=== PATIENT | female | born 1955 | race Caucasian/White ===

== ENCOUNTER 2016-04-07 20:44 | Inpatient (IN) | payer MEDICARE, MEDICAID ==
--- NOTE | 2016-04-07 22:34 | ER Document Report ---
ED Medical Screen (RME) - General Stated Complaint: ABDOMINAL PAIN Time seen by provider: 22:30 Notes: 60 year old female, chief complaint of mid abdominal pain for 1 month, worsening mid abdominal pain, reports that she has a failed hernia repair which she was told needed to be evaluated but she became sick and could not get to be evaluated until now. She states she can feel the hernia but she cannot push it back in. She states she has vomited, had loose bowel movement. Denies fever. - Related Data Allergies/Adverse Reactions: acetaminophen [From Tylenol] Allergy (Verified 11/08/11 16:13) nalbuphine HCl [From Nubain] Allergy (Verified 11/08/11 16:13) Past Medical History Psychiatric Medical History: Reports: Hx Depression Past Surgical History: Reports: Hx Abdominal Surgery - gastric bypass, Hx Hysterectomy Physical Exam - Abdominal Tenderness: Other - Patient with a ventral hernia scar, midline significant tenderness, obvious ventral hernia which I cannot reduce easily in the chair with limited abdominal exam Course - Re-evaluation Re-evalutation: Patient is not in any distress suggesting a severely incarcerated hernia, however in the chair I cannot reduce the obvious ventral hernia and the area is very tender - asking for a room
[2016-04-08] MEDS ORDERED: FENTANYL CITRATE INJ/PF 100 MCG/2 ML AMPUL IV ONE (01:47)
[2016-04-08] MEDS ORDERED: NORMAL SALINE 1000 ML 1,000 ML IV ONE (01:47)
[2016-04-08 02:17] LABS: ABSOLUTE EOSINOPHILS # (AUTO) 0.2 10^3/uL (0.0-0.6); ABSOLUTE LYMPHOCYTES (AUTO) 1.3 10^3/uL (0.5-4.7); ABSOLUTE MONOCYTES (AUTO) 0.5 10^3/uL (0.1-1.4); ABSOLUTE NEUT (AUTO) 1.4 10^3/uL (1.7-8.2); BASOPHILS % (AUTO) 0.4 % (0-2); EOSINOPHILS % (AUTO) 7.1 % (0-6); HEMATOCRIT 41.5 % (36.0-47.0); HEMOGLOBIN 14.6 g/dL (12.0-15.5); HGB HCT DIFFERENCE 2.3; LYMPHOCYTES % (AUTO) 37.8 % (13-45); MEAN CORPUSCULAR HEMOGLOBIN 34.9 pg (27.0-33.4); MEAN CORPUSCULAR HGB CONC 35.2 g/dL (32.0-36.0); MEAN CORPUSCULAR VOLUME 99 fl (80-97); RED BLOOD COUNT 4.18 10^6/uL (3.72-5.28); RED CELL DISTRIBUTION WIDTH 12.9 % (11.5-14.0); SEGMENTED NEUTROPHILS % (AUTO) 39.7 % (42-78); WHITE BLOOD COUNT 3.4 10^3/uL (4.0-10.5)
[2016-04-08 02:33] LABS: ALANINE AMINOTRANSFERASE 22 U/L (9-52); ALBUMIN 4.2 g/dL (3.5-5.0); ALKALINE PHOSPHATASE 106 U/L (38-126); ANION GAP 13 (5-19); ASPARTATE AMINO TRANSFERASE 35 U/L (14-36); BILIRUBIN,TOTAL 0.4 mg/dL (0.2-1.3); BLOOD UREA NITROGEN 9 mg/dL (7-20); CARBON DIOXIDE 27 mmol/L (22-30); CHLORIDE 102 mmol/L (98-107); GLUCOSE 88 mg/dL (75-110); LIPASE 114.8 U/L (23-300); POTASSIUM 4.2 mmol/L (3.6-5.0); SODIUM 142.1 mmol/L (137-145); TOTAL PROTEIN 7.3 g/dL (6.3-8.2)
--- NOTE | 2016-04-08 02:44 | ER Document Report ---
ED GI/ - General Chief Complaint: Abdominal Pain Stated Complaint: ABDOMINAL PAIN Notes: Patient is a 60 year old female, chief complaint of mid abdominal pain for 1 month, worsening mid abdominal pain, reports that she has a failed hernia repair which she was told needed to be evaluated but she became sick and could not get to be evaluated until now. She states she can feel the hernia but she cannot push it back in. She states she has vomited, had loose bowel movement. Denies fever. Past medical history of hypertension, initial hernia repair in 2002 and then again in 2004 in [place], hysterectomy, gastric bypass, bladder lift 2 TRAVEL OUTSIDE OF THE [place] IN LAST 30 DAYS: No - Related Data Allergies/Adverse Reactions: acetaminophen [From Tylenol] Allergy (Verified 04/08/16 05:45) nalbuphine HCl [From Nubain] Allergy (Verified 04/08/16 05:45) meperidine [From Demerol] Adverse Reaction (Intermediate, Verified 04/08/16 05: 45) Migraine Home Medications: Current Home Medications Atenolol [Atenolol] 1 tab PO DAILY 04/08/16 [History] Past Medical History - General Information source: Patient - Social History Smoking Status: Current Every Day Smoker Chew tobacco use (# tins/day): No Frequency of alcohol use: Heavy Drug Abuse: None Lives with: Family Family History: Reviewed & Not Pertinent Patient has suicidal ideation: No Patient has homicidal ideation: No - Past Medical History Cardiac Medical History: Reports: Hx Hypertension Renal/ Medical History: Denies: Hx Peritoneal Dialysis Psychiatric Medical History: Reports: Hx Depression Past Surgical History: Reports: Hx Abdominal Surgery - gastric bypass, hernia, Hx Genitourinary Surgery - bladder surgery x2, Hx Hysterectomy - Immunizations Hx Diphtheria, Pertussis, Tetanus Vaccination: - unk Review of Systems - Review of Systems Constitutional: No symptoms reported EENT: No symptoms reported Cardiovascular: No symptoms reported Respiratory: No symptoms reported Gastrointestinal: See HPI Genitourinary: No symptoms reported Female Genitourinary: No symptoms reported Musculoskeletal: No symptoms reported Skin: No symptoms reported Hematologic/Lymphatic: No symptoms reported Neurological/Psychological: No symptoms reported Physical Exam - Vital signs Vitals: Temp Pulse BP Pulse Ox 97.5 F 92 124/70 98 04/07/16 22:19 04/07/16 22:19 04/07/16 22:19 04/07/16 22:19 Interpretation: Normal - General General appearance: Alert In distress: None - Patient does not appear to be in any distress - HEENT Head: Normocephalic, Atraumatic Eyes: Normal Conjunctiva: Normal Extraocular movements intact: Yes Eyelashes: Normal Pupils: PERRL Mouth/Lips: Normal Mucous membranes: Normal Pharynx: Normal Neck: Normal - Respiratory Respiratory status: No respiratory distress Chest status: Nontender Breath sounds: Normal. No: Decreased air movement, Wheezing Chest palpation: Normal - Cardiovascular Rhythm: Regular. No: Tachycardia Heart sounds: Normal auscultation, S1 appreciated, S2 appreciated Murmur: No - Abdominal Inspection: Other - There is a large midline scar extending from the upper abdomen to the lower abdomen Tenderness: Tender - There is a tender ventral hernia noted on examination, no other areas of tenderness of the abdomen, no rigidity - Back Back: Normal, Nontender. No: Tender - Extremities General upper extremity: Normal inspection, Nontender, Normal color, Normal ROM , Normal temperature General lower extremity: Normal inspection, Nontender, Normal color, Normal ROM , Normal temperature, Normal weight bearing. No: Seth's sign - Neurological Neuro grossly intact: Yes Cognition: Normal Orientation: AAOx4 [place] Coma Scale Eye Opening: Spontaneous [place] Coma Scale Verbal: Oriented [place] Coma Scale Motor: Obeys Commands [place] Coma Scale Total: 15 Speech: Normal Cranial nerves: Normal Cerebellar coordination: Normal Motor strength normal: LUE, RUE, LLE, RLE Additional motor exam normals: Equal auditor Sensory: Normal - Psychological Associated symptoms: Normal affect, Normal mood - Skin Skin Temperature: Warm Skin Moisture: Dry Skin Color: Normal Course - Re-evaluation Re-evalutation: CBC unremarkable, vital signs unremarkable, however patient has a ventral hernia which is notably tender on examination, protruding obviously, I was able to reduce this after giving the patient fentanyl, however promptly after this the hernia came back with outpatient coughing or even getting up. Attempted to reduce again with no success. 04/08/16 03:00 Discussed with surgery quality consultant, Dr. Zuluaga, he requests orders to be place for fluids, nothing by mouth status, and when necessary pain medication, observation admission, states he will see patient. - Vital Signs Vital signs: Temp Pulse Resp BP Pulse Ox 98.3 F 84 18 114/70 97 04/08/16 04:00 04/08/16 01:45 04/08/16 04:00 04/08/16 05:01 04/08/16 05:09 - Laboratory Result Diagrams: 04/08/16 01:50 04/08/16 01:50 Laboratory results interpreted by me: 04/08/16 01:50 WBC 3.4 L MCV 99 H MCH 34.9 H Seg Neutrophils % 39.7 L Monocytes % 15.0 H Eosinophils % 7.1 H Absolute Neutrophils 1.4 L Discharge - Discharge Clinical Impression: Incarcerated ventral hernia Abdominal pain Qualifiers: Abdominal location: generalized Qualified Code(s): R10.84 - Generalized abdominal pain Disposition: ADMITTED OBSERVATION Admitting Provider: Surgicalist Unit Admitted: Surgical Floor
[2016-04-08] MEDS ORDERED: DEXTROSE 5%-1/2 NORMAL SALINE 1,000 ML IV PRN (02:52)
[2016-04-08] MEDS: MORPHINE SULFATE 10 MG/ML INJ IV PRN ×4 (05:28→17:23)
[2016-04-08 06:01] LABS: APPEARANCE,URINE CLEAR; BILIRUBIN,URINE NEGATIVE (NEGATIVE); GLUCOSE, URINE NEGATIVE (NEGATIVE); KETONES,URINE NEGATIVE (NEGATIVE); LEUKOCYTE ESTERASE,URINE NEGATIVE (NEGATIVE); NITRITE,URINE NEGATIVE (NEGATIVE); PROTEIN,URINE NEGATIVE (NEGATIVE); URINE SPECIFIC GRAVITY 1.004; UROBILINOGEN,URINE NEGATIVE mg/dL (<2.0)
[2016-04-08] MEDS ORDERED: LIDOCAINE 2% INJ-PF (20 MG/ML) 10 ML AMPUL ONE (07:36)
[2016-04-08] MEDS ORDERED: NEOSTIGMINE METHYLSULFATE 10 MG/10 ML VIAL ONE (07:36)
[2016-04-08] MEDS ORDERED: SUCCINYLCHOLINE CHLORIDE INJ 200 MG/10 ML VIAL ONE (07:36)
[2016-04-08] MEDS ORDERED: ONDANSETRON HCL INJ/PF 4 MG/2 ML SDV ONE (07:36)
[2016-04-08] MEDS ORDERED: GLYCOPYRROLATE INJ 0.4 MG/2 ML VIAL ONE (07:36)
[2016-04-08] MEDS ORDERED: DEXAMETHASONE SOD PHOSPHATE INJ 4 MG/1 ML VIAL ONE (07:36)
[2016-04-08] MEDS ORDERED: VECURONIUM BROMIDE INJ 10 MG VIAL IV ONE (07:36)
[2016-04-08] MEDS ORDERED: FENTANYL CITRATE INJ/PF 100 MCG/2 ML AMPUL ONE (19:13)
[2016-04-08] MEDS ORDERED: PROPOFOL INJ 200 MG/20 ML VIAL IV ONE (19:13)
[2016-04-08] MEDS ORDERED: MIDAZOLAM 2 MG/2 ML INJ ONE (19:13)
[2016-04-08] MEDS ORDERED: HYDROMORPHONE HCL INJ/PF 2 MG/ML AMPULE ONE (19:18)
[2016-04-08] MEDS ORDERED: MORPHINE SULFATE 10 MG/ML INJ IV PRN ×3 (19:26→21:15)
[2016-04-08] MEDS ORDERED: BUPIVACAINE HCL 0.25% /EPINEPHRINE INJ/PF 30 ML SDV ONE (19:52)
[2016-04-08] MEDS ORDERED: ERTAPENEM SODIUM 1 GM in NORMAL SALINE 50 ML IV ONE (20:00)
--- NOTE | 2016-04-08 20:03 | CONSULT/HISTORY AND PHYSICAL E ---
Consultation/History and Physical PATIENT NAME: IQRA SCHULTZ : 1955 AGE: 60Y DATE: 04/08/2016 ROOM: 204 CHIEF COMPLAINT: Abdominal pain. HISTORY OF PRESENT ILLNESS: The patient is a 60-year-old woman who presents with excruciating pain in the mid abdomen. In the Emergency Department, attempts were made to reduce what appeared to be a ventral hernia; however, these attempts were unsuccessful, and the patient is admitted for further surgical treatment of incarcerated recurrent ventral hernia. She has not had nausea or vomiting, but she has had pain over the last few days especially when standing or lifting. She points to a knot in her mid abdomen. PAST MEDICAL HISTORY: Her past medical history is remarkable for gastric bypass procedure. She has also had multiple abdominal hernia wall repairs and repair of inguinal hernia and hysterectomy and bladder packing. Patient denies history of cardiac, pulmonary, or endocrinologic disease. ALLERGIES: Allergies not to: 1. ACETAMINOPHEN. 2. NUBAIN. 3. MEPERIDINE. FAMILY HISTORY: Non-contributory. SOCIAL HISTORY: The patient is a current smoker. She uses alcohol heavily by her report. She lives with her family, and they are [employer] and [employer]. REVIEW OF SYSTEMS: Review of systems is discussed. There are no constitutional, HEENT, cardiovascular, respiratory, genitourinary symptoms. Gastrointestinal symptoms as noted in the HPI. She has no musculoskeletal complaints. She does complain of varicose veins in her right lower extremity, but she denies discomfort in the lower extremities. PHYSICAL EXAMINATION: GENERAL: The patient is a pleasant woman in no acute distress. She is uncomfortable and has had pain relieved by morphine. HEAD AND NECK: Unremarkable for age. CHEST: Clear to auscultation and percussion. CARDIAC: Without murmur, gallop, or rub. ABDOMEN: Soft. There is a palpable mass in the mid abdomen which is tender, but there is no erythema, induration, or evidence of bowel incarcerated without evidence of abdominal distention or tympani or organomegaly, mass, rebound, guarding, or rigidity. Again, no evidence of peritonitis. Peripheral examination otherwise unremarkable. DIAGNOSTIC TESTS: Data base includes a CT scan which reveals a 10 mm nodule of fat incarcerated in the abdominal ventral hernia that is consistent with findings on the physical examination. She has a white count of 3400; hemoglobin and hematocrit are 14.6 and 41.5. Sodium 142, potassium 4.2, chloride 102, CO2 27. BUN and creatinine are 9 and 0.6. Liver function and lipase are within normal range. IMPRESSION: A 60-year-old woman with an incarcerated recurrent ventral hernia. The risks and alternatives of repair were discussed at length. The patient is markedly uncomfortable and has had increasing discomfort over the last few days. She is aware that she has had multiple hernia repairs and that in all likelihood there is scarring in the area of this hernia. I impressed upon her that I will do my best to simply repair this small hernia and remove the incarcerated fat, but she is also aware of the risks for injury to bowel in the vicinity secondary to multiple probable adhesions. She wishes to proceed at this time. She will receive IV antibiotic therapy preoperatively. She has signed the consent regarding risks and alternatives and again wishes to proceed. DICTATING PHYSICIAN: ANGELICA PERDOMO M.D. [id number] PHY#: [id number] ID: [id number] JOB#: [id number] ACCT: [id number] cc:Katia PERERA PA >
[2016-04-08] MEDS ORDERED: BUPIVACAINE HCL 0.25% /EPINEPHRINE INJ/PF 30 ML SDV INJ ONE (20:07)
[2016-04-08] MEDS ORDERED: PROMETHAZINE HCL INJ 25 MG/1 ML VIAL IV PRN ×2 (20:10)
[2016-04-08] MEDS ORDERED: FENTANYL CITRATE INJ/PF 100 MCG/2 ML AMPUL IV PRN ×3 (20:10)
[2016-04-08] MEDS ORDERED: DIPHENHYDRAMINE HCL 50 MG/ML VIAL IV PRN (20:10)
[2016-04-08] MEDS ORDERED: OXYCODONE HCL IR 5 MG TABLET PO PRN (21:15)
--- NOTE | 2016-04-08 21:18 | OPERATIVE REPORT E ---
Operative Report NAME: IQRA SCHULTZ : 1955 AGE: 60Y DATE OF SURGERY: 04/08/2016 ROOM: 204 PREOPERATIVE DIAGNOSIS: Incarcerated recurrent ventral hernia. POSTOPERATIVE DIAGNOSIS: Incarcerated recurrent ventral hernia. OPERATION: Repair of incarcerated ventral abdominal wall hernia. SURGEON: PAYTON PERDOMO M.D. ANESTHESIA: General endotracheal. PROCEDURE: The patient was taken to the operating room after informed consent, positive identification, and timeout. The abdomen was prepped and draped in a standard fashion. An incision was made 3 cm above and 3 cm below the palpable mass in the supraumbilical region. The incision was made with the scalpel, carried down to the deep tissues with the Metzenbaum scissors and Bovie cautery. A firm rounded 2 cm mass was located. This was dissected free and did not communicate with the peritoneal cavity but appeared to be calcified fatty tissue. Just above this was a 1 cm ventral hernia through which was incarcerated properitoneal fat. There was no bowel involved on the CT scan of this area. The properitoneal fat was carefully dissected free, and a small hernia sac was opened and inspected, and once it was assured that there were no bowel contents within this protruding hernia, the tissue was divided *------* between #0-Vicryl sutures and passed off the surgical field. This left a 1.5 to 2 cm defect with free edges, and this was easily re-approximated with several #0-Vicryl interrupted sutures. With this accomplished, the fascial area was injected with 0.25% Marcaine with epinephrine solution, and the deep tissues were re-approximated with an #0-Vicryl interrupted suture. The skin was closed with patt. The patient tolerated the procedure well. Estimated blood loss was less than 10 mL. Sponge and needle counts were correct, and the patient was taken to the recovery room in satisfactory condition. DICTATING PHYSICIAN: ANGELICA PERDOMO M.D. [id number] PHY#: [id number] ID: [id number] JOB#: [id number] ACCT: [id number] cc:PAYTON PERDOMO M.D. >
[2016-04-08] MEDS: POTASSI CL 20 MEQ/D5-1/2NS 1L 1000 ML IV PRN (21:56)
[2016-04-08] MEDS ORDERED: PANTOPRAZOLE SODIUM 40 MG VIAL IV SCH (22:00)
[2016-04-09] MEDS: POTASSI CL 20 MEQ/D5-1/2NS 1L 1000 ML IV PRN (06:22)
[2016-04-09] MEDS ORDERED: ATENOLOL 50 MG TABLET PO SCH (10:00)
--- NOTE | 2016-04-09 13:38 | DISCHARGE SUMMARY E ---
Discharge Summary NAME: IQRA SCHULTZ : 1955 AGE: 60Y ADMITTED: 04/08/2016 DISCHARGED: 04/09/2016 ADMITTING DIAGNOSIS: Incarcerated ventral recurrent hernia. POSTOPERATIVE DIAGNOSIS: Status post operative repair of incarcerated recurrent ventral hernia. HOSPITAL COURSE: Unremarkable. She was admitted after surgical intervention late in the evening on 04/08 and was able to be discharged on the first postoperative morning. Active and ambulatory. Tolerating a regular diet and without complaint. She is provided a prescription for oxycodone. She has allergies to ACETAMINOPHEN. She is advised not to drive while taking oxycodone. Her wounds are clean. Her abdomen is soft. She is advised not to lift. She is to be seen in followup in [address] Maravilla. She is to remain active, ambulatory, and contact Dr. Perdomo should she have any questions or problems. She is to continue her prehospital medication of atenolol for which she has ample quantity at home. DICTATING PHYSICIAN: ANGELICA PERDOMO M.D. [id number] PHY#: [id number] ID: [id number] JOB#: [id number] ACCT: [id number] cc:PAYTON PERDOMO M.D., IVAN PA [facility] NETWORK[facility]
[2016-04-09 14:14] VITALS: BP 128/76
== END 2016-04-09 15:15 | disposition home or self-care (01) | DRG 355 ==
LOC: ER 20:44 → EH 04-08 03:04 → OBSVTOIN 04-08 04:51 → 2N 04-08 16:38
PROVIDERS: ATTEND Surgery
PROC: 0WQF0ZZ Repair Abdominal Wall, Open Approach (ICD-10-PCS; principal; 2016-04-08 20:30)
DX: K43.0 Incisional hernia with obstruction, without gangrene (principal); I10 Essential (primary) hypertension; F17.200 Nicotine dependence, unspecified, uncomplicated; Z98.84 Bariatric surgery status; Z90.710 Acquired absence of both cervix and uterus; Z88.6 Allergy status to analgesic agent; Z88.8 Allergy status to other drugs, medicaments and biological substances; Z72.89 Other problems related to lifestyle
CPT/HCPCS: 36415; 74177; 752; 80053; 81001; 83690; 85025; 88302; 94799; J0330; J1100; J1170; J1335; J2250; J2270; J2405; J2704; J3010; J3480; J3490; J7030; S0164

== ENCOUNTER 2016-09-25 19:29 | Emergency (ER) | payer MEDICARE, MEDICAID ==
[2016-09-25] MEDS ORDERED: POTASSI CL 20 MEQ/50 ML RIDER 20 MEQ/50 ML RTUPB IV SCH (20:12)
[2016-09-25] MEDS ORDERED: CALCIUM GLUCONATE 1000 MG/10 ML INJ IV ONE (20:14)
[2016-09-25] MEDS ORDERED: DILTIAZEM HCL/D5W 125 MG/125 ML RTUINJ IV PRN (20:14)
[2016-09-25] MEDS ORDERED: MAGNESIUM SULFATE/D5W 1 GM/100 ML RTUPB IV SCH (20:15)
--- NOTE | 2016-09-25 20:29 | ER Document Report ---
ED GI/ - General Chief Complaint: Abdominal Pain Stated Complaint: ABDOMINAL PAIN Time Seen by Provider: 09/25/16 19:54 Notes: The patient is a 61-year-old female, past medical history multiple ventral hernia repairs (last one 5 months ago at [facility]), gastric bypass, presents with intermittent right upper quadrant abdominal pain, at the site of her prior ventral hernias. She is unsure if it has returned. She is also having nausea, but denies vomiting, fevers, diarrhea, constipation, headache, urinary symptoms , rash, chest pain or shortness of breath. TRAVEL OUTSIDE OF THE [place] IN LAST 30 DAYS: No - Related Data Allergies/Adverse Reactions: acetaminophen [From Tylenol] Allergy (Verified 04/08/16 05:45) nalbuphine HCl [From Nubain] Allergy (Verified 04/08/16 05:45) oxycodone [From Percocet] Allergy (Verified 09/25/16 19:38) meperidine [From Demerol] Adverse Reaction (Intermediate, Verified 04/08/16 05: 45) Migraine Past Medical History - General Information source: Patient - Social History Smoking Status: Current Every Day Smoker Family History: Reviewed & Not Pertinent - Past Medical History Cardiac Medical History: Reports: Hx Hypertension Renal/ Medical History: Denies: Hx Peritoneal Dialysis Psychiatric Medical History: Reports: Hx Depression Past Surgical History: Reports: Hx Abdominal Surgery - gastric bypass, hernia, Hx Genitourinary Surgery - bladder surgery x2, Hx Hysterectomy - Immunizations Hx Diphtheria, Pertussis, Tetanus Vaccination: - unk Review of Systems - Review of Systems Notes: REVIEW OF SYSTEMS: CONSTITUTIONAL: -fevers, -chills EENT: -eye pain, -difficulty swallowing, -nasal congestion CARDIOVASCULAR:-chest pain, -syncope. RESPIRATORY: -cough, -SOB GASTROINTESTINAL: +abdominal pain, +nausea, -vomiting, -diarrhea GENITOURINARY: -dysuria, -hematuria MUSCULOSKELETAL: -back pain, -neck pain SKIN: -rash or skin lesions. HEMATOLOGIC: -easy bruising or bleeding. LYMPHATIC: -swollen, enlarged glands. NEUROLOGICAL: -altered mental status or loss of consciousness, -headache, - neurologic symptoms PSYCHIATRIC: -anxiety, -depression. ALL OTHER SYSTEMS REVIEWED AND NEGATIVE. Physical Exam - Vital signs Vitals: Temp Pulse Resp BP Pulse Ox 97.6 F 88 17 117/87 H 94 09/25/16 19:38 09/25/16 19:38 09/25/16 19:38 09/25/16 19:38 09/25/16 19:38 - Notes Notes: PHYSICAL EXAMINATION: GENERAL: Well-appearing, well-nourished and in no acute distress. HEAD: Atraumatic, normocephalic. EYES: Pupils equal round and reactive to light, extraocular movements intact, sclera anicteric, conjunctiva are normal. ENT: nares patent, oropharynx clear without exudates. Moist mucous membranes. NECK: Normal range of motion, supple without lymphadenopathy LUNGS: Breath sounds clear to auscultation bilaterally and equal. No wheezes rales or rhonchi. HEART: Regular rate and rhythm without murmurs ABDOMEN: Soft, nontender, normoactive bowel sounds. No guarding, no rebound. No masses appreciated. EXTREMITIES: Normal range of motion, no pitting or edema. No cyanosis. NEUROLOGICAL: Cranial nerves grossly intact. Normal speech, normal gait. Normal sensory and motor exams. PSYCH: Normal mood, normal affect. SKIN: Warm, Dry, normal turgor, no rashes or lesions noted. Course - Re-evaluation Re-evalutation: Patient appears well and has no abdominal pain or tenderness. CT does not show any evidence of recurrence of ventral hernia. Labs are unremarkable. Instructed patient to follow-up with her surgeon for further evaluation and treatment. - Vital Signs Vital signs: Temp Pulse Resp BP Pulse Ox 97.6 F 88 17 117/87 H 94 09/25/16 19:38 09/25/16 19:38 09/25/16 19:38 09/25/16 19:38 09/25/16 19:38 - Laboratory Result Diagrams: 09/25/16 21:03 09/25/16 21:03 Laboratory results interpreted by me: 09/25/16 09/25/16 21:03 21:03 RBC 3.53 L MCV 102 H MCH 35.7 H Sodium 136.2 L - Diagnostic Test Radiology reviewed: Image reviewed, Reports reviewed Radiology results interpreted by me: CT A/P: NAD Discharge - Discharge Clinical Impression: Abdominal pain Qualifiers: Abdominal location: unspecified location Qualified Code(s): R10.9 - Unspecified abdominal pain Condition: Stable Disposition: HOME, SELF-CARE Additional Instructions: Your CAT scan does not show any acute findings today and her labs are unremarkable. Follow-up with your surgeon for further evaluation and treatment. ABDOMINAL PAIN: There are many causes of abdominal pain. Pain can mean a serious problem requiring surgery (such as appendicitis). It can also be an innocent problem that goes away on its own (such as a viral infection). Often, time must pass to determine the cause of pain. The physician does not feel that hospitalization is necessary, at present. Things may change within the next 24 hours. Call the doctor or come back for re- examination if any problems occur, such as: (1) Pain that becomes more severe, steady, or becomes concentrated in one specific area. Also, pain that is more severe with movement or coughing. (2) Vomiting that persists or becomes more frequent. (3) Blood in the vomitus, urine, or bowel movements. Blood in the stool may have a tarry or black appearance. (4) Shaking chills or fever greater than 100 degrees F. (5) The abdomen becomes more distended or swollen. (6) Bowel movements cease. (7) Failure to improve as expected. NORMAL EXAM AND WORKUP: At this time, your examination and workup show no significant abnormality. No significant abnormal physical findings are noted. All laboratory, EKG, and imaging (x-ray, CT scans, ultrasound) studies that were ordered show no significant abnormality. Although your examination and all studies that were ordered showed no significant abnormal finding, there are no examinations and no studies that are 100% accurate. There is always the possibility that some abnormality could exist and not be detected with physical examination or within the limits and capabilities of laboratory and other studies. You should return or follow up as you were instructed on your visit today for further evaluation if your symptoms do not resolve. PAIN MEDICATION INJECTION: You have received an injection of a pain medication. You should experience significant pain relief within 45 minutes. This drug is a narcotic - - it will impair your judgement, slow your reaction time and make you sleepy ( as well as relieve your pain). Narcotics also can cause nausea. You should not drive, work with machinery, or perform any task requiring mental alertness until all effects of the medication are gone -- six to eight hours. Do not take any alcohol, or sedatives, and do not take any other medication without checking with your physician. FOLLOW-UP CARE: If you have been referred to a physician for follow-up care, call the physician s office for an appointment as you were instructed or within the next two days. If you experience worsening or a significant change in your symptoms, notify the physician immediately or return to the Emergency Department at any time for re-evaluation.
[2016-09-25] MEDS ORDERED: KETOROLAC TROMETHAMINE INJ/PF 30 MG/1 ML SDV IV ONE (20:33)
[2016-09-25] MEDS ORDERED: MORPHINE SULFATE 10 MG/ML INJ IV ONE (20:33)
[2016-09-25 21:13] LABS: ABSOLUTE EOSINOPHILS # (AUTO) 0.1 10^3/uL (0.0-0.6); ABSOLUTE LYMPHOCYTES (AUTO) 1.9 10^3/uL (0.5-4.7); ABSOLUTE MONOCYTES (AUTO) 0.6 10^3/uL (0.1-1.4); ABSOLUTE NEUT (AUTO) 2.6 10^3/uL (1.7-8.2); BASOPHILS % (AUTO) 0.6 % (0-2); EOSINOPHILS % (AUTO) 2.7 % (0-6); HEMATOCRIT 36.2 % (36.0-47.0); HEMOGLOBIN 12.6 g/dL (12.0-15.5); HGB HCT DIFFERENCE 1.6; LYMPHOCYTES % (AUTO) 36.5 % (13-45); MEAN CORPUSCULAR HEMOGLOBIN 35.7 pg (27.0-33.4); MEAN CORPUSCULAR HGB CONC 34.9 g/dL (32.0-36.0); MEAN CORPUSCULAR VOLUME 102 fl (80-97); MONOCYTES % (AUTO) 11.2 % (3-13); RED BLOOD COUNT 3.53 10^6/uL (3.72-5.28); RED CELL DISTRIBUTION WIDTH 12.7 % (11.5-14.0); WHITE BLOOD COUNT 5.3 10^3/uL (4.0-10.5)
[2016-09-25 21:30] LABS: ALANINE AMINOTRANSFERASE 33 U/L (9-52); ALKALINE PHOSPHATASE 90 U/L (38-126); ANION GAP 8 (5-19); ASPARTATE AMINO TRANSFERASE 35 U/L (14-36); BILIRUBIN,DIRECT 0.4 mg/dL (0.0-0.4); BILIRUBIN,TOTAL 0.5 mg/dL (0.2-1.3); BLOOD UREA NITROGEN 10 mg/dL (7-20); CALCIUM 9.3 mg/dL (8.4-10.2); CARBON DIOXIDE 26 mmol/L (22-30); CHLORIDE 102 mmol/L (98-107); GLUCOSE 84 mg/dL (75-110); LIPASE 91.6 U/L (23-300); POTASSIUM 3.9 mmol/L (3.6-5.0); SODIUM 136.2 mmol/L (137-145); TOTAL PROTEIN 6.5 g/dL (6.3-8.2)
--- NOTE | 2016-09-25 22:57 | RADIOLOGY REPORT (SQ) ---
EXAM DESCRIPTION: CT ABD/PELVIS WITH IV ONLY COMPLETED DATE/TIME: 09/25/2016 10:22 pm REASON FOR STUDY: abdominal distention, hernia, vomiting COMPARISON: 04/08/2016 TECHNIQUE: CT scan of the abdomen and pelvis performed using helical scanning technique with dynamic intravenous contrast injection. No oral contrast. Images reviewed with lung, soft tissue, and bone windows. Reconstructed coronal and sagittal MPR images reviewed. Delayed images for evaluation of the urinary system also acquired. All images stored on PACS. All CT scanners at this facility use dose modulation, iterative reconstruction, and/or weight based d osing when appropriate to reduce radiation dose to as low as reasonably achievable (ALARA). [facility]: Dose Right [facility]: CareDose [facility]: Dose Right [facility]: Teradose 4D [facility]: [employer] CONTRAST TYPE AND DOSE: contrast/concentration: Isovue 370.00 mg/ml; Total Contrast Delivered: 75.0 ml; Total Saline Delivered: 67.0 ml RENAL FUNCTION: GFR > 60. RADIATION DOSE: Up-to-date CT equipment and radiation dose reduction techniques were employed. CTDIv ol: 7.8 - 11.1 mGy. DLP: 936 mGy-cm.. LIMITATIONS: None. FINDINGS: LOWER CHEST: No significant findings. No nodules or infiltrates. LIVER: Normal size. No masses. No dilated ducts. SPLEEN: Normal size. No focal lesions. PANCREAS: No masses. No significant calcifications. No adjacent inflammation or peripancreatic fluid collections. Pancreatic duct not dilated. GALLBLADDER: No identified stones by CT criteria. No inflammatory changes to suggest cholecystitis. ADRENAL GLANDS: No significant masses or asymmetry. RIGHT KIDNEY AND URETER: No solid masses. No significant calcifications. No hydronephrosis or hyd roureter. LEFT KIDNEY AND URETER: No solid masses. No significant calcifications. No hydronephrosis or hydr oureter. AORTA AND VESSELS: No aneurysm. No dissection. Renal arteries, SMA, celiac without stenosis. RETROPERITONEUM: No retroperitoneal adenopathy, hemorrhage or masses. BOWEL AND PERITONEAL CAVITY: Scattered surgical changes. No evidence for obstruction. No masses or inflammatory changes. No free fluid or peritoneal masses. APPENDIX: Normal. PELVIS: No mass. No free fluid. Normal bladder. ABDOMINAL WALL: No masses. Similar small fat containing ventral hernias. BONES: No significant or acute findings. OTHER: No other significant finding. IMPRESSION: NO ACUTE FINDING IN THE ABDOMEN OR PELVIS ON CT SCAN WITH IV CONTRAST. TECHNICAL DOCUMENTATION: JOB ID: [id number] Quality ID # [id number]: Final reports with documentation of one or more dose reduction techniques (e.g., Au tomated exposure control, adjustment of the mA and/or kV according to patient size, use of iterative reconstruction technique) 2010 [employer]- All Rights Reserved
[2016-09-25 23:17] VITALS: BP 123/79
== END 2016-09-25 23:16 | disposition home or self-care (01) ==
LOC: ER 19:29
DX: R10.9 Unspecified abdominal pain (principal); R11.0 Nausea; F17.200 Nicotine dependence, unspecified, uncomplicated
CPT/HCPCS: 99284; 96374; 96375; 36415; 83690; 85025; 80053; 74177; J1885; J2270

== ENCOUNTER 2017-12-12 09:32 | Emergency (ER) | payer MEDICARE, MEDICAID ==
[2017-12-12 11:13] LABS: ABSOLUTE MONOCYTES (AUTO) 0.4 10^3/uL (0.1-1.4); ABSOLUTE NEUT (AUTO) 2.9 10^3/uL (1.7-8.2); BASOPHILS % (AUTO) 0.5 % (0-2); EOSINOPHILS % (AUTO) 0.5 % (0-6); HEMATOCRIT 45.4 % (36.0-47.0); HEMOGLOBIN 16.1 g/dL (12.0-15.5); LYMPHOCYTES % (AUTO) 23.2 % (13-45); MEAN CORPUSCULAR HEMOGLOBIN 36.8 pg (27.0-33.4); MEAN CORPUSCULAR HGB CONC 35.5 g/dL (32.0-36.0); MEAN CORPUSCULAR VOLUME 104 fl (80-97); PLATELET COUNT 238 10^3/uL (150-450); RED BLOOD COUNT 4.38 10^6/uL (3.72-5.28); RED CELL DISTRIBUTION WIDTH 12.9 % (11.5-14.0); SEGMENTED NEUTROPHILS % (AUTO) 66.8 % (42-78); TOTAL CELLS COUNTED % (AUTO) 100 %; WHITE BLOOD COUNT 4.3 10^3/uL (4.0-10.5)
[2017-12-12 11:16] LABS: APPEARANCE,URINE CLEAR; BILIRUBIN,URINE NEGATIVE (NEGATIVE); COLOR,URINE STRAW; GLUCOSE, URINE NEGATIVE (NEGATIVE); KETONES,URINE NEGATIVE (NEGATIVE); LEUKOCYTE ESTERASE,URINE NEGATIVE (NEGATIVE); NITRITE,URINE NEGATIVE (NEGATIVE); PROTEIN,URINE NEGATIVE (NEGATIVE); URINE SPECIFIC GRAVITY 1.003; UROBILINOGEN,URINE NEGATIVE mg/dL (<2.0)
[2017-12-12] MEDS ORDERED: ONDANSETRON HCL INJ/PF 4 MG/2 ML SDV IV ONE (12:04)
[2017-12-12] MEDS ORDERED: NORMAL SALINE 1000 ML 1,000 ML IV PRN (12:04)
--- NOTE | 2017-12-12 12:06 | ER Document Report ---
ED GI/ - General Chief Complaint: Nausea/Vomiting Stated Complaint: VOMITING Time Seen by Provider: 12/12/17 11:49 Mode of Arrival: Ambulatory Information source: Patient Notes: Patient presents complaining of a 5-week history of nausea and vomiting that occurs after eating. Patient states that she typically will vomit about 2 times a day. Patient denies any fever or diarrhea. Patient did see her primary doctor last week for these symptoms and was placed on Cipro and Flagyl in addition to Phenergan. Patient denies any pain symptoms at this time. Patient does acknowledge drinking alcohol daily. TRAVEL OUTSIDE OF THE [place] IN LAST 30 DAYS: No - HPI Patient complains to provider of: Abdominal pain - Off and on, none at this time , Vomiting. No: Diarrhea Onset: Other - 5 weeks Timing/Duration: Waxing and waning Quality of pain: No pain Severity at maximum: Moderate Severity in ED: None Associated symptoms: Nausea, Vomiting. denies: Dysuria, Fever, Loss of appetite , Urinary hesitancy, Urinary frequency, Urinary retention Exacerbated by: Food Relieved by: Denies - Related Data Allergies/Adverse Reactions: acetaminophen [From Tylenol] Allergy (Verified 04/08/16 05:45) nalbuphine HCl [From Nubain] Allergy (Verified 04/08/16 05:45) oxycodone [From Percocet] Allergy (Verified 09/25/16 19:38) meperidine [From Demerol] Adverse Reaction (Intermediate, Verified 04/08/16 05: 45) Migraine Past Medical History - General Information source: Patient - Social History Smoking Status: Current Every Day Smoker Smoking Education Provided: Yes Frequency of alcohol use: 4-5 beers daily Drug Abuse: None Occupation: None Family History: Reviewed & Not Pertinent Patient has suicidal ideation: No Patient has homicidal ideation: No - Past Medical History Cardiac Medical History: Reports: Hx Hypertension Renal/ Medical History: Denies: Hx Peritoneal Dialysis Musculoskeletal Medical History: Reports Other - Chronic back pain Psychiatric Medical History: Reports: Hx Depression Past Surgical History: Reports: Hx Abdominal Surgery - gastric bypass, hernia, Hx Genitourinary Surgery - bladder surgery x2, Hx Hysterectomy - Immunizations Hx Diphtheria, Pertussis, Tetanus Vaccination: - unk Review of Systems - Review of Systems Constitutional: No symptoms reported. denies: Fever EENT: No symptoms reported Cardiovascular: No symptoms reported. denies: Chest pain Respiratory: No symptoms reported. denies: Cough, Short of breath Gastrointestinal: Abdominal pain, Vomiting. denies: Poor appetite Genitourinary: No symptoms reported. denies: Dysuria, Flank pain Female Genitourinary: No symptoms reported Musculoskeletal: No symptoms reported Skin: No symptoms reported Hematologic/Lymphatic: No symptoms reported Neurological/Psychological: No symptoms reported Physical Exam - Vital signs Vitals: Temp Pulse Resp BP Pulse Ox 98.0 F 79 16 137/90 H 100 12/12/17 09:45 12/12/17 09:45 12/12/17 09:45 12/12/17 09:45 12/12/17 09:45 - General General appearance: Appears well, Alert In distress: None - HEENT Head: Normocephalic, Atraumatic Eyes: Normal Conjunctiva: Normal Mouth/Lips: Normal Mucous membranes: Normal Pharynx: Normal Neck: Normal, Supple. No: Lymphadenopathy - Respiratory Respiratory status: No respiratory distress Chest status: Nontender Breath sounds: Normal. No: Rales, Rhonchi, Stridor, Wheezing Chest palpation: Normal - Cardiovascular Rhythm: Regular Heart sounds: S1 appreciated, S2 appreciated Murmur: No - Abdominal Inspection: Obese Distension: No distension Bowel sounds: Normal Tenderness: Nontender Organomegaly: No organomegaly - Back Back: Normal, Nontender. No: CVA tenderness - Extremities General upper extremity: Normal inspection, Normal ROM. No: Edema General lower extremity: Normal inspection, Normal ROM. No: Edema - Neurological Neuro grossly intact: Yes Cognition: Normal [place] Coma Scale Eye Opening: Spontaneous Kasia Coma Scale Verbal: Oriented Kasia Coma Scale Motor: Obeys Commands Kasia Coma Scale Total: 15 - Psychological Associated symptoms: Normal affect, Normal mood - Skin Skin Temperature: Warm Skin Moisture: Dry Skin Color: Normal Course - Re-evaluation Re-evalutation: 12/12/17 17:57 Patient's abdomen does continue soft nontender. Patient without any nausea or vomiting during ER stay patient does acknowledge drinking alcohol daily although did not drink any today. Patient encouraged to avoid alcohol use and was advised of her elevated LFTs. Patient encouraged to follow-up with primary doctor for a recheck of her symptoms and laboratory studies. Ultrasound reviewed, no concern for cholecystitis. Patient presents with abdominal pain without signs of peritonitis or other life-threatening or serious etiology. Patient appears stable for discharge and has been instructed to return immediately if the symptoms worsen in any way, or in 8-12 hours if not improved for reevaluation. The patient has been instructed to return if the symptoms worsen or change in any way. - Vital Signs Vital signs: Temp Pulse Resp BP Pulse Ox 98.1 F 84 16 125/85 98 12/12/17 18:25 12/12/17 18:25 12/12/17 18:25 12/12/17 18:25 12/12/17 18:25 - Laboratory Result Diagrams: 12/12/17 10:50 12/12/17 12:08 Laboratory results interpreted by me: 12/12/17 12/12/17 10:50 12:08 Hgb 16.1 H MCV 104 H MCH 36.8 H Direct Bilirubin 0.5 H AST 130 H ALT 59 H Alkaline Phosphatase 133 H Albumin 3.4 L 12/12/17 17:58 Labs- Entire Visit 12/12/17 12/12/17 12/12/17 10:50 10:50 10:50 WBC 4.3 RBC 4.38 Hgb 16.1 H Hct 45.4 MCV 104 H MCH 36.8 H MCHC 35.5 RDW 12.9 Plt Count 238 Seg Neutrophils % 66.8 Lymphocytes % 23.2 Monocytes % 9.0 Eosinophils % 0.5 Basophils % 0.5 Absolute Neutrophils 2.9 Absolute Lymphocytes 1.0 Absolute Monocytes 0.4 Absolute Eosinophils 0.0 Absolute Basophils 0.0 Sodium Cancelled Potassium Cancelled Chloride Cancelled Carbon Dioxide Cancelled Anion Gap Cancelled BUN Cancelled Creatinine Cancelled Est GFR ( Amer) Cancelled Est GFR (Non-Af Amer) Cancelled Glucose Cancelled Calcium Cancelled Total Bilirubin Cancelled Direct Bilirubin Cancelled Neonat Total Bilirubin Cancelled Neonat Direct Bilirubin Cancelled Neonat Indirect Bili Cancelled AST Cancelled ALT Cancelled Alkaline Phosphatase Cancelled Creatine Kinase Total Protein Cancelled Albumin Cancelled Lipase Urine Color STRAW Urine Appearance CLEAR Urine pH 6.0 Ur Specific [place] 1.003 Urine Protein NEGATIVE Urine Glucose (UA) NEGATIVE Urine Ketones NEGATIVE Urine Blood NEGATIVE Urine Nitrite NEGATIVE Urine Bilirubin NEGATIVE Urine Urobilinogen NEGATIVE Ur Leukocyte Esterase NEGATIVE Urine WBC (Auto) 0 Squamous Epi Cells Auto 3 Urine Mucus (Auto) RARE Urine Ascorbic Acid NEGATIVE 12/12/17 12:08 WBC RBC Hgb Hct MCV MCH MCHC RDW Plt Count Seg Neutrophils % Lymphocytes % Monocytes % Eosinophils % Basophils % Absolute Neutrophils Absolute Lymphocytes Absolute Monocytes Absolute Eosinophils Absolute Basophils Sodium 138.5 Potassium 4.8 Chloride 102 Carbon Dioxide 28 Anion Gap 9 BUN 11 Creatinine 0.65 Est GFR ( Amer) > 60 Est GFR (Non-Af Amer) > 60 Glucose 75 Calcium 9.0 Total Bilirubin 1.2 Direct Bilirubin 0.5 H Neonat Total Bilirubin Not Reportable Neonat Direct Bilirubin Not Reportable Neonat Indirect Bili Not Reportable AST 130 H ALT 59 H Alkaline Phosphatase 133 H Creatine Kinase 84 Total Protein 6.6 Albumin 3.4 L Lipase 245.9 Urine Color Urine Appearance Urine pH Ur Specific [place] Urine Protein Urine Glucose (UA) Urine Ketones Urine Blood Urine Nitrite Urine Bilirubin Urine Urobilinogen Ur Leukocyte Esterase Urine WBC (Auto) Squamous Epi Cells Auto Urine Mucus (Auto) Urine Ascorbic Acid - Diagnostic Test Radiology reviewed: Reports reviewed Discharge - Discharge Clinical Impression: Liver function test abnormality Nausea & vomiting Qualifiers: Vomiting type: unspecified Vomiting Intractability: non-intractable Qualified Code(s): R11.2 - Nausea with vomiting, unspecified Condition: Stable Disposition: HOME, SELF-CARE Instructions: Antinausea Medication ([facility]), Gastritis ([facility]), Liver Function Abnormality ([facility]), Vomiting ([facility]) Additional Instructions: Return immediately for any new or worsening symptoms Followup with your primary care provider, call tomorrow to make a followup appointment Avoid drinking alcohol See her primary doctor for recheck to have your liver function tests reevaluated Prescriptions: Omeprazole Magnesium [Prilosec Otc] 20 mg PO DAILY #15 tablet. Sucralfate [Carafate 1 gm Tablet] 1 gm PO ACHS #40 tablet Forms: Smoking Cessation Education Referrals: RODRÍGUEZ LIANG PA [NO LOCAL MD] - Follow up tomorrow
[2017-12-12 12:53] LABS: ALANINE AMINOTRANSFERASE 59 U/L (9-52); ALBUMIN 3.4 g/dL (3.5-5.0); ALKALINE PHOSPHATASE 133 U/L (38-126); ANION GAP 9 (5-19); ASPARTATE AMINO TRANSFERASE 130 U/L (14-36); BILIRUBIN,DIRECT 0.5 mg/dL (0.0-0.4); BILIRUBIN,TOTAL 1.2 mg/dL (0.2-1.3); BLOOD UREA NITROGEN 11 mg/dL (7-20); CARBON DIOXIDE 28 mmol/L (22-30); CHLORIDE 102 mmol/L (98-107); CREATINE KINASE 84 U/L (30-135); GLUCOSE 75 mg/dL (75-110); LIPASE 245.9 U/L (23-300); POTASSIUM 4.8 mmol/L (3.6-5.0); SODIUM 138.5 mmol/L (137-145); TOTAL PROTEIN 6.6 g/dL (6.3-8.2)
--- NOTE | 2017-12-12 17:34 | RADIOLOGY REPORT (SQ) ---
EXAM DESCRIPTION: U/S ABDOMEN LIMITED W/O DOP COMPLETED DATE/TIME: 12/12/2017 3:44 pm REASON FOR STUDY: abd pain after eating, elev LFT COMPARISON: None. TECHNIQUE: Dynamic and static grayscale images acquired of the abdomen and recorded on PACS. Additio nal selected color Doppler and spectral images recorded. LIMITATIONS: Limited visualization. Poor acoustical window FINDINGS: PANCREAS: Limited visualization. No masses seen LIVER: Normal size Moderate to marked fatty infiltration. No focal masses. LIVER VASCULATURE: Normal directional flow of the main portal vein and hepatic veins. GALLBLADDER: No stones. Normal wall thickness. No pericholecystic fluid. ULTRASOUND-DETECTED BALBUNEA'S SIGN: Negative. INTRAHEPATIC DUCTS AND COMMON DUCT: CBD and intrahepatic ducts normal caliber. No filling defects. INFERIOR VENA CAVA: Normal flow. AORTA: Obscured. RIGHT KIDNEY: Normal size. Normal echogenicity. No solid or suspicious masses. No hydronephros is. No calcifications. PERITONEAL AND RIGHT PLEURAL SPACE: No ascites or effusions. OTHER: No other significant findings. IMPRESSION: FATTY LIVER. OTHERWISE NORMAL RUQ US VISUALIZED TECHNICAL DOCUMENTATION: JOB ID: [id number]- All Rights Reserved Reading location - IP/workstation name: [email or web address]
[2017-12-12 18:26] VITALS: BP 125/85
== END 2017-12-12 18:26 | disposition home or self-care (01) ==
LOC: ER 09:32
DX: R94.5 Abnormal results of liver function studies (principal); R11.2 Nausea with vomiting, unspecified; E66.9 Obesity, unspecified; F17.200 Nicotine dependence, unspecified, uncomplicated; E78.00 Pure hypercholesterolemia, unspecified; Z88.6 Allergy status to analgesic agent; Z98.84 Bariatric surgery status; Z90.710 Acquired absence of both cervix and uterus
CPT/HCPCS: 99284; 96361; 96374; 36415; 82550; 83690; 85025; 80053; 81001; 76705; J2405; J7030

== ENCOUNTER 2018-02-17 04:54 | Emergency (ER) | payer MEDICARE, MEDICAID ==
[2018-02-17 05:06] VITALS: BP 111/82
[2018-02-17] MEDS ORDERED: DIAZEPAM INJ 10 MG/2 ML DISP.SYRIN IM ONE (07:23)
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
== END 2018-02-17 08:12 | disposition home or self-care (01) ==
LOC: ER 04:54
DX: M62.830 Muscle spasm of back (principal); M54.9 Dorsalgia, unspecified; I10 Essential (primary) hypertension; Z90.710 Acquired absence of both cervix and uterus; Z98.84 Bariatric surgery status; Z88.6 Allergy status to analgesic agent
CPT/HCPCS: 99283; 96372; J3360